=== PATIENT | male | born 1960 | race African-American/Black ===

== ENCOUNTER 2023-01-21 14:37 | Emergency (ER) | payer OTHER, SELFPAY ==
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
--- NOTE | 2023-01-21 14:59 | ECG_ITS ---
Test Reason : CHEST PAIN Blood Pressure : / mmHG Vent. Rate : 072 BPM Atrial Rate : 072 BPM P-R Int : 186 ms QRS Dur : 086 ms QT Int : 378 ms P-R-T Axes : 059 -03 002 degrees QTc Int : 413 ms Normal sinus rhythm Nonspecific T wave abnormality Abnormal ECG No previous ECGs available Referred By: Laxmi Dorado Electronically Signed By:LARRY ALEJANDRO
[2023-01-21 15:01] VITALS: BP 145/88; BP 150/90; PULSE 66; PULSE 86; RESP 16; O2SAT 90; O2SAT 95; BMI 35.3
[2023-01-21] MEDS: Diphth,Pertus(ACell),Tet Adult 0.5 ML SYRINGE IM (15:31)
[2023-01-21] MEDS: oxyCODONE HCl Immed Release 5 MG TABLET 10 MG PO (16:22)
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
== END 2023-01-21 18:28 | disposition short-term general hospital (02) ==
PROVIDERS: Emergency Provider Emergency Medicine
DX: S92.401A Displaced unspecified fracture of right great toe, initial encounter for closed fracture (principal); S90.511A Abrasion, right ankle, initial encounter; R07.89 Other chest pain; R51.9 Headache, unspecified; M54.2 Cervicalgia; V29.408A Other motorcycle driver injured in collision with unspecified motor vehicles in traffic accident, initial encounter; Y93.9 Activity, unspecified; Y92.410 Unspecified street and highway as the place of occurrence of the external cause; Y99.9 Unspecified external cause status; Z79.899 Other long term (current) drug therapy; Z23 Encounter for immunization
CPT/HCPCS: 70450; 71046; 72125; 73620; 90471; 90715; 93005; 99285